=== PATIENT | male | born 1940 | race Caucasian/White ===

== ENCOUNTER 2024-11-02 11:40 | Emergency (ER) | payer MEDICARE, MEDICAID ==
[~2024-11-02] VITALS: Ht 177.8 cm; Wt 80.7 kg
[2024-11-02] MEDS ORDERED: OXYB-58 PO (12:08)
[2024-11-02] MEDS ORDERED: GABA300C PO (12:08)
[2024-11-02] MEDS ORDERED: LAMO100T17 PO (12:08)
[2024-11-02] MEDS ORDERED: DIVA125C5 PO (12:08)
[2024-11-02] MEDS ORDERED: CARB1TAB21 PO (12:08)
[2024-11-02] MEDS ORDERED: DIVA250T PO (12:08)
[2024-11-02] MEDS ORDERED: ATOR40TA PO (12:08)
[2024-11-02] MEDS ORDERED: SYSTANE 0.6% EACHEYE (12:08)
[2024-11-02] MEDS ORDERED: METH1PAT8 TD (12:08)
[2024-11-02] MEDS ORDERED: METH1PAT6 TD (12:08)
[2024-11-02] MEDS ORDERED: CLOP75TA33 PO (12:08)
[2024-11-02 12:34] LABS: BASOPHILS % (AUTO) 0.2 % (0.0-2.0); EOSINOPHILS # (AUTO) 0.3 K/uL (0.0-0.7); EOSINOPHILS % (AUTO) 1.9 % (0.0-7.0); HEMATOCRIT 38.4 % (36.7-47.1); HEMOGLOBIN 12.4 g/dL (12.5-16.3); LYMPHOCYTES # (AUTO) 1.3 K/uL (0.8-4.8); LYMPHOCYTES % (AUTO) 9.8 % (20.5-51.5); MEAN CORPUSCULAR HEMOGLOBIN 31.5 uug (23.8-33.4); MEAN CORPUSCULAR HGB CONC 32 g/dL (32.5-36.3); MEAN CORPUSCULAR VOLUME 97.7 fL (73.0-96.2); MONOCYTES # (AUTO) 1.2 K/uL (0.1-1.30); MONOCYTES % (AUTO) 8.9 % (0.0-11.0); NEUTROPHILS # (AUTO) 10.8 K/uL (1.8-8.9); NEUTROPHILS % (AUTO) 79.2 % (38.5-71.5); PLATELET COUNT (AUTO) 201 K/uL (152-348); RED BLOOD CELL COUNT(AUTO) 3.93 MIL/uL (4.06-5.63); RED CELL DISTRIBUTION WIDTH 15.5 % (12.1-16.2); WHITE BLOOD COUNT (AUTO) 13.7 K/uL (3.6-10.2)
[2024-11-02 12:36] LABS: DIFFERENTIAL COMMENT 1
[2024-11-02] MEDS: IV NS 1000 ML 1,000 ML IV ONE (12:59)
[2024-11-02 13:03] LABS: CALCIUM 8.5 mg/dL (8.5-10.1); CARBON DIOXIDE 27 mmol/L (21-32); CHLORIDE 107 mmol/L (98-107); CREATININE 0.8 mg/dL (0.6-1.3); GLUCOSE 111 mg/dL (74-106); SODIUM SERUM 143 mmol/L (136-145); UREA NITROGEN, BLOOD 12 mg/dL (7-18)
[2024-11-02 13:17] LABS: ALANINE AMINOTRANSFERASE < 6 U/L (16-63); ALBUMIN 2.9 g/dL (3.4-5.0); ALKALINE PHOSPHATASE 62 U/L (50-136); ASPARTATE AMINOTRANSFERASE 12 U/L (15-37); BILIRUBIN,DIRECT 0.1 mg/dL (0.0-0.2); BILIRUBIN,TOTAL 0.5 mg/dL (0.2-1.0); NT-PRO BNP 214 pg/mL (0-125); TOTAL PROTEIN, SERUM 6.4 g/dL (6.4-8.2)
[2024-11-02] MEDS ORDERED: IV NORMAL SALINE 250 ML IV ONE (16:07)
[2024-11-02] MEDS ORDERED: SWABABLE VALVE TRANSFER SET EA MC ONE (16:07)
[2024-11-02] MEDS ORDERED: IOHEXOL 350 100 ML INFUS..BTL ONE (16:07)
[2024-11-02 17:08] LABS: *BILIRUBIN,URIN NEGATIVE (NEGATIVE); *BLOOD, URINE 2+ (NEGATIVE); *CLARITY,URINE CLEAR (CLEAR); *COLOR,URINE YELLOW (YELLOW); *KETONES,URINE NEGATIVE (NEGATIVE); *PROTEIN,URINE TRACE (NEGATIVE); LEUKOCYTE ESTERASE ,URINE 3+ (NEGATIVE); NITRITE, URINE POSITIVE (NEGATIVE); UGLUCOSE NEGATIVE (NEGATIVE)
[2024-11-02 17:18] LABS: BACTERIA,URINE MANY /HPF (NONE SEEN); SQUAMOUS EPITHELIAL CELL,UR FEW /HPF (NONE SEEN); WBC,URINE 50-80 /HPF (0-3)
[2024-11-02] MEDS ORDERED: CEFTRIAXONE /D5W 50ML IVPB **ER PYXIS IV ONE (18:17)
[2024-11-02] MEDS: CEFTRIAXONE 1 G in IV DEXTROSE 5% 50 ML IV ONE (18:18)
[2024-11-02] MEDS ORDERED: CEFD300C3 PO (18:21)
[2024-11-02] MEDS ORDERED: GENTAMICIN SULFATE 80 MG/2 ML VIAL ONE (20:15)
[2024-11-02] MEDS: GENTAMICIN SULFATE IV ONE (20:31)
[2024-11-02] MEDS: DEXTROSE 5% IV ONE (20:31)
[2024-11-03 00:26] VITALS: BP 122/69; TEMP 98.2; O2SAT 96
== END 2024-11-02 23:50 | disposition home or self-care (01) ==
LOC: ER 11:40
DX: N39.0 Urinary tract infection, site not specified (principal); I95.9 Hypotension, unspecified; R06.02 Shortness of breath; R09.02 Hypoxemia; Z79.02 Long term (current) use of antithrombotics/antiplatelets; Z79.899 Other long term (current) drug therapy; Z90.49 Acquired absence of other specified parts of digestive tract; Z99.3 Dependence on wheelchair
CPT/HCPCS: 99285; 96365; 71275; 71045; 96367; 96361; 80076; 80048; 81001; 83880; 85025; 85379; 85730; 84484; 36415; 93005; 87086; J0696; J1580 ×2; Q9967; A4606; A4663